=== PATIENT | male | born 1985 | race Caucasian/White ===

== ENCOUNTER 2020-03-22 19:20 | Emergency (ER) | payer OTHER ==
[2020-03-22] MEDS ORDERED: ONDANSETRON 4 MG TAB.RAPDIS PO ONE (20:47)
[2020-03-22] MEDS ORDERED: KETOROLAC TROMETHAMINE 60 MG/2 ML SDV IM ONE (20:47)
--- NOTE | 2020-03-22 20:50 | ER Document Report ---
ED Medical Screen (RME) - General Chief Complaint: Urinary Frequency Stated Complaint: FLANK PAIN Time Seen by Provider: 03/22/20 20:42 Mode of Arrival: Ambulatory Information source: Patient Notes: HPI; 34-year-old male presents to the emergency room complaining of lower pelvic and flank pain for the past week. Describes it as a sharp pain. States he started with some chest pressure today. Painful urination with decreased urinary output. Nausea but no vomiting. No history of kidney stones. No penile discharge. No cardiac history. Been taking Tylenol and leftover Zofran with minimal relief. Denies any COVID-19 exposure. PE: Alert and oriented x3. Lungs: Clear to auscultation without rales, rhonchi, wheezes. Heart: Regular rate rhythm without murmurs, rubs, gallops. I have greeted and performed a rapid initial assessment of this patient. A comprehensive ED assessment and evaluation of the patient, analysis of test results and completion of the medical decision making process will be conducted by additional ED providers. I have specifically instructed the patient or family members with the patient to immediately return to any nursing staff should anything change in the patient's condition or with their chief complaint. TRAVEL OUTSIDE OF THE [place] IN LAST 30 DAYS: No - Related Data Allergies/Adverse Reactions: No Known Allergies Allergy (Verified 03/22/20 20:41) Home Medications: trazadone-sleep. buproprion-bipolar Past Medical History - Social History Frequency of alcohol use: None Drug Abuse: None Physical Exam - Vital signs Vitals: Temp Pulse Resp BP Pulse Ox 98.1 F 73 18 166/83 H 98 03/22/20 19:59 03/22/20 19:59 03/22/20 19:59 03/22/20 19:59 03/22/20 19:59 Course - Vital Signs Vital signs: Temp Pulse Resp BP Pulse Ox 98.1 F 73 18 166/83 H 98 03/22/20 19:59 03/22/20 19:59 03/22/20 19:59 03/22/20 19:59 03/22/20 19:59
--- NOTE | 2020-03-22 21:39 | RADIOLOGY REPORT (SQ) ---
EXAM DESCRIPTION: CT ABDOMEN PELVIS WITHOUT IV CONTRAST COMPLETED DATE/TME: 03/22/2020 21:10 CLINICAL HISTORY: 34 years, Male, flank pain COMPARISON: None TECHNIQUE: Axial images without IV contrast. Sagittal coronal reconstruction. Images stored on PACS. All CT scanners at this facility use dose modulation, iterative reconstruction, and/or weight based dosing when appropriate to reduce radiation dose to as low as reasonably achievable (ALARA). FINDINGS: Lung bases liver, spleen, pancreas, biliary system, adrenal glands, aorta and aortic regions are unremarkable. Kidneys without stones hydronephrosis or focal lesions. No suspicious bowel or peritoneal abnormality. Appendix not clearly seen. No indirect signs of appendicitis. No suspicious spine abnormality. CT of the pelvis demonstrates mildly enlarged prostate for age. Central prostatic stones. Urinary bladder unremarkable. Bowel loops are unremarkable. No free fluid or adenopathy. Bony pelvis is unremarkable. IMPRESSION: 1. Mildly enlarged prostate for age mildly coarse central prostatic stones. 2. No acute findings.
--- NOTE | 2020-03-22 21:40 | RADIOLOGY REPORT (SQ) ---
EXAM DESCRIPTION: XR CHEST 2 VIEWS COMPLETED DATE/TME: 03/22/2020 21:17 CLINICAL HISTORY: 34 years, Male, chest pain COMPARISON: None. TECHNIQUE: PA and lateral views FINDINGS: Cardiomediastinal silhouette is not enlarged. No suspicious lung pleural bone abnormalities. IMPRESSION: Negative two-view chest x-ray
[2020-03-22 22:32] LABS: ABSOLUTE EOSINOPHILS # (AUTO) 0.1 10^3/uL (0.0-0.6); ABSOLUTE MONOCYTES (AUTO) 0.5 10^3/uL (0.1-1.4); ABSOLUTE NEUT (AUTO) 2.8 10^3/uL (1.7-8.2); BASOPHILS % (AUTO) 0.4 % (0-2); EOSINOPHILS % (AUTO) 1.4 % (0-6); HEMATOCRIT 39.5 % (37.9-51.0); HEMOGLOBIN 13.7 g/dL (13.5-17.0); LYMPHOCYTES % (AUTO) 37.4 % (13-45); MEAN CORPUSCULAR HEMOGLOBIN 30.4 pg (27.0-33.4); MEAN CORPUSCULAR HGB CONC 34.7 g/dL (32.0-36.0); MEAN CORPUSCULAR VOLUME 88 fl (80-97); MONOCYTES % (AUTO) 9.3 % (3-13); PLATELET COUNT 217 10^3/uL (150-450); RED CELL DISTRIBUTION WIDTH 13.4 % (11.5-14.0); SEGMENTED NEUTROPHILS % (AUTO) 51.5 % (42-78); TOTAL CELLS COUNTED % (AUTO) 100 %; WHITE BLOOD COUNT 5.4 10^3/uL (4.0-10.5)
[2020-03-22 22:35] LABS: APPEARANCE,URINE CLOUDY; BILIRUBIN,URINE NEGATIVE (NEGATIVE); COLOR,URINE YELLOW; GLUCOSE, URINE NEGATIVE (NEGATIVE); KETONES,URINE NEGATIVE (NEGATIVE); LEUKOCYTE ESTERASE,URINE NEGATIVE (NEGATIVE); NITRITE,URINE NEGATIVE (NEGATIVE); PROTEIN,URINE NEGATIVE (NEGATIVE)
[2020-03-22 22:46] LABS: ALBUMIN 4.2 g/dL (3.5-5.0); ALKALINE PHOSPHATASE 45 U/L (38-126); ANION GAP 6 (5-19); ASPARTATE AMINO TRANSFERASE 28 U/L (17-59); BILIRUBIN,DIRECT 0.2 mg/dL (0.0-0.4); BILIRUBIN,TOTAL 0.5 mg/dL (0.2-1.3); BLOOD UREA NITROGEN 16 mg/dL (7-20); CALCIUM 9.1 mg/dL (8.4-10.2); CARBON DIOXIDE 26 mmol/L (22-30); CHLORIDE 104 mmol/L (98-107); GLUCOSE 85 mg/dL (75-110); POTASSIUM 4.3 mmol/L (3.6-5.0); TOTAL PROTEIN 6.5 g/dL (6.3-8.2)
--- NOTE | 2020-03-22 23:45 | EKG REPORT ---
SEVERITY:- BORDERLINE ECG - SINUS RHYTHM PROBABLE LEFT ATRIAL ABNORMALITY : Confirmed by: Darryl Wall 22-Mar-2020 23:44:20
--- NOTE | 2020-03-23 04:33 | ER Document Report ---
ED GI/ - General Chief Complaint: Groin Pain Stated Complaint: FLANK PAIN Time Seen by Provider: 03/22/20 20:42 Primary Care Provider: CHELLE SANTANA MD [NO LOCAL MD] - Follow up as needed [facility] [[facility] - Follow up as needed Mode of Arrival: Ambulatory Information source: Patient Notes: 34-year-old male presented to ED for complaint of low pelvic and flank pain for the past week. He described the pain tonight was been sharp. He stated been pa in full urination for about the last week. Nausea with no vomiting. No history of kidney stones or penile discharge. He states he been taking Tylenol and leftover Zofran with minimal relief. He states the pain was much worse on the right than on the left. He states he has been to the urgent care off and on for a week. He states everything that done was negative. He states last night the pain was much worse. He did come to the emergency room and ordered blood and urine and CT in the triage area. The CT did show a mildly enlarged prostate for his age. I did discuss these findings with recommended a testicular ultrasound to ensure there was no testicular torsion. Also did a GC and chlamydia. The testicle ultrasound did show hydroceles and epididymal cyst. Patient was given a copy of all of his labs ultrasound and CT and was instructed to please follow-up with urology. Patient verbalized understanding and agreement with this. Constitutional: Negative for fever. HENT: Negative for sore throat. Eyes: Negative for visual changes. Cardiovascular: Negative for chest pain. Respiratory: Negative for shortness of breath. Gastrointestinal: Negative for abdominal pain, vomiting or diarrhea. Genitourinary: Bilateral groin tenderness more so to the right. He states he also had testicular pain with no redness or swelling. Musculoskeletal: Negative for back pain. Skin: Negative for rash. Neurological: Negative for headaches, weakness or numbness. 10 point ROS negative except as marked above and in HPI. VITAL SIGNS: Within normal limits. GENERAL: No acute distress, non-toxic appearance. HEAD: Normal with no signs of head trauma. EYES: PERRLA, EOMI, conjunctiva normal, no discharge. EARS: Hearing grossly intact. NOSE: Normal. THROAT: Oropharynx is normal. NECK: Normal range of motion, no tenderness, supple, no lymphadenopathy, No adenopathy, no JVD. CHEST: Clear breath sounds bilaterally. No wheezes, rales, or rhonchi. CARDIAC: Regular rate and rhythm. S1 and S2, without murmurs, gallops, or rubs. VASCULAR: No Edema. Peripheral pulses normal and equal in all extremities. ABDOMEN: Normal and soft with no tenderness, no masses or pulsatile masses. GASTROINTESTINAL: Bowel sounds normal GENITOURINARY: Genital exam completed in the accompaniment of Elise Valerio LPN. He did have tenderness to the right testicle but not the left. He also had bilateral groin tenderness. No redness or swelling noted to either testicle or groin area. There was a very small loss of skin to the end of the penis but no canker sore. He did have a small abscess that looks to be healing on his rectum. He states he is on antibiotic from [facility] for that. LYMPATHTIC: No lymphadenopathy noted. MUSCULOSKELETAL: Good range of motion of all major joints. Extremities without clubbing, cyanosis or edema. NEUROLOGICAL: Alert and oriented x 3. No focal sensory or strength deficits. Speech normal. Follows commands appropriately. PSYCHIATRIC: Normal Affect, judgement and mood. SKIN: Normal appearance with no rashes or lesions. TRAVEL OUTSIDE OF THE [place] IN LAST 30 DAYS: No - HPI Patient complains to provider of: Groin pain, Testicular pain Onset: Last week Timing/Duration: Intermittent, Worse Quality of pain: Sharp Severity at maximum: Moderate Severity in ED: Mild Pain Level: 2 Location: Suprapubic, Right testicle, Other - groin Sexual history: Active Associated symptoms: Other - Testicular and groin tenderness Exacerbated by: Movement, Walking Relieved by: Denies Similar symptoms previously: Yes Recently seen / treated by doctor: Yes - Related Data Allergies/Adverse Reactions: No Known Allergies Allergy (Verified 03/22/20 20:41) Home Medications: trazadone-sleep. buproprion-bipolar Past Medical History - General Information source: Patient - Social History Smoking Status: Former Smoker Frequency of alcohol use: None Drug Abuse: None Lives with: Alone Family History: Reviewed & Not Pertinent Patient has suicidal ideation: No Patient has homicidal ideation: No - Past Medical History Cardiac Medical History: Reports: None Pulmonary Medical History: Reports: None EENT Medical History: Reports: None Neurological Medical History: Reports: None Endocrine Medical History: Reports: None Renal/ Medical History: Reports: Hx Hydrocele Malignancy Medical History: Reports None GI Medical History: Reports: None Musculoskeletal Medical History: Reports None Skin Medical History: Reports None Psychiatric Medical History: Reports: Hx Bipolar Disorder Traumatic Medical History: Reports: None Infectious Medical History: Reports: None Surgical Hx: Negative Past Surgical History: Reports: None - Immunizations Immunizations up to date: Yes Hx Diphtheria, Pertussis, Tetanus Vaccination: Yes Physical Exam - Vital signs Vitals: Temp Pulse Resp BP Pulse Ox 98.1 F 73 18 166/83 H 98 03/22/20 19:59 03/22/20 19:59 03/22/20 19:59 03/22/20 19:59 03/22/20 19:59 Course - Vital Signs Vital signs: Temp Pulse Resp BP Pulse Ox 98.3 F 69 20 153/78 H 99 03/23/20 07:06 03/23/20 07:06 03/23/20 07:06 03/23/20 07:06 03/23/20 07:06 - Laboratory Results Result Diagrams: 03/22/20 21:55 03/22/20 21:55 Laboratory Results Interpreted: 03/22/20 03/22/20 21:55 21:55 Sodium 136.2 L Urine Urobilinogen 2.0 H Critical Laboratory Results Reviewed: No Critical Results - Radiology Results Critical Radiology Results Reviewed: No Critical Results Discharge - Discharge Clinical Impression: epididymal head cyst right, Bilateral hydrocele, Pelvic pain in male Condition: Stable Disposition: HOME, SELF-CARE Additional Instructions: You were seen today for complaint of lower pelvic and flank pain for the last week that got much worse tonight. Your CT scan showed that she had a mildly enlarged prostate with a prostate stone. Your ultrasound shows that you have a right epididymal head cyst and bilateral hydroceles Hydrocele You have been diagnosed as having a hydrocele. The sac that holds the testicles is called the scrotum. A hydrocele is usually a painless collection of fluid in the membrane that covers the testicle(s). This may be present at or develop later on in life. The cause is usually unknown. In infants a hydrocele can be due to a miscommunication of the fluid surrounding the testes. In adults a hydrocele may form due to injury or inflammation of surrounding structures. Most hydroceles require no treatment, and usually resolve on their own. However, sometimes surgical intervention is recommended for recurrent, or for unusually large hydroceles. The surgery to fix a hydrocele is a minor procedure and usually takes about 1 and 1/2 hours. These are findings that she will need to follow-up with a urologist. Given you the name and number of a local urologist. You could call him and schedule general a appointment but you will need to talk with your [facility] about [facility]. FOLLOW-UP CARE: If you have been referred to a physician for follow-up care, call the physicians office for an appointment as you were instructed or within the next two days. If you experience worsening or a significant change in your symptoms, notify the physician immediately or return to the Emergency Department at any time for re-evaluation. Forms: Return to Work Referrals: [facility] [Primary [facility] Provider] - Follow up as needed CHELLE SANTANA MD [NO LOCAL MD] - Follow up as needed
--- NOTE | 2020-03-23 05:53 | RADIOLOGY REPORT (SQ) ---
EXAM: US SCROTUM CLINICAL DATA: 34 years Male testicular pain TECHNICAL DATA: Sagittal and transverse ultrasound imaging and measurement of bilateral testicles with color flow was performed on 03/23/2020 at 4:47 AM. Comparison: None. FINDINGS: The right testicle measures 5.0 x 2.5 x 3.4 cm and is homogeneous in echogenicity. No focal masses are identified. The right epididymal head measures 1.3 x 0.9 x 1.4 cm. There is a small 6 x 5 mm right epididymal head cyst. Doppler imaging demonstrates normal flow in the right testicle . There is a small right hydrocele. The left testicle measures 4.7 x 2.4 x 3.5 cm and is homogeneous in echogenicity. No focal masses are identified. The left epididymal head measures 1.0 x 1.2 x 1.5 cm. Doppler imaging demonstrates normal flow in the left testicle. There is a small left hydrocele. IMPRESSION: 1. Grossly normal sonographic evaluation of the testicles. 2. Small right epididymal head cyst. 3. Small bilateral hydroceles.
[2020-03-23 06:14] LABS: CHLAM PCR NOT DETECTED (NOT DETECT)
[2020-03-23 07:07] VITALS: BP 153/78
== END 2020-03-23 07:00 | disposition home or self-care (01) ==
LOC: ER 19:20
DX: N50.3 Cyst of epididymis (principal); N43.3 Hydrocele, unspecified; N40.0 Benign prostatic hyperplasia without lower urinary tract symptoms; R10.2 Pelvic and perineal pain; R10.9 Unspecified abdominal pain; R30.9 Painful micturition, unspecified; R11.0 Nausea; K61.1 Rectal abscess; N50.811 Right testicular pain; F31.9 Bipolar disorder, unspecified; Z79.899 Other long term (current) drug therapy; Z87.891 Personal history of nicotine dependence
CPT/HCPCS: 93005; 99285; 96372; 36415; 85025; 80053; 81001; 84484; 87491; 87591; 71046; 76870; 93976; 74176; 93010; J1885; S0119